=== PATIENT | male | born 1970 | race African-American/Black ===

== ENCOUNTER 2019-09-05 05:13 | Emergency (ER) | payer BC, OTHER ==
--- NOTE | 2019-09-05 06:19 | ER Document Report ---
ED General - General Chief Complaint: Eye Pain Stated Complaint: LEFT EYE PAIN Time Seen by Provider: 09/05/19 06:11 Mode of Arrival: Ambulatory Information source: Patient TRAVEL OUTSIDE OF THE [place] IN LAST 30 DAYS: No - HPI Onset: Other - 2 weeks Onset/Duration: Gradual, Persistent, Worse Quality of pain: Burning, Throbbing Severity: Moderate Pain Level: 2 Context: Patient is a 48-year-old male presenting to the emergency department chief complaint of decreased vision to the left eye and watering. The patient states it started about 2 weeks ago without provocation patient states he went to a local urgent care clinic he states that just a physical exam without staining or any other mechanism he was placed on 2 eyedrop medications. He further states that when symptoms did not resolve he was placed on oral steroids and told that if symptoms did not resolve that he needed to follow-up with an eye doctor. Patient presents to the emergency department this morning for evaluation. Associated symptoms: Allergy/hay fever Exacerbated by: Other - bright light Relieved by: Denies Similar symptoms previously: Yes Recently seen / treated by doctor: Yes - Related Data Allergies/Adverse Reactions: No Known Allergies Allergy (Unverified 09/05/19 05:23) Home Medications: EYE ANTIBIOTICS Past Medical History - General Information source: Patient - Social History Smoking Status: Never Smoker Chew tobacco use (# tins/day): No Frequency of alcohol use: None Drug Abuse: None Family History: None Patient has suicidal ideation: No Patient has homicidal ideation: No - Medical History Medical History: Negative Surgical Hx: Negative Review of Systems - Review of Systems Constitutional: No symptoms reported EENT: See HPI, Eye pain, Eye discharge, Blurred vision, Tearing Cardiovascular: No symptoms reported Respiratory: No symptoms reported Gastrointestinal: No symptoms reported Genitourinary: No symptoms reported Male Genitourinary: No symptoms reported Musculoskeletal: No symptoms reported Skin: No symptoms reported Hematologic/Lymphatic: No symptoms reported Neurological/Psychological: No symptoms reported Physical Exam - Vital signs Vitals: Temp Pulse BP Pulse Ox 97.3 F 64 181/100 H 99 09/05/19 05:22 09/05/19 05:22 09/05/19 05:22 09/05/19 05:22 - Notes Notes: PHYSICAL EXAMINATION: GENERAL: Well-appearing, well-nourished and in no acute distress. HEAD: Atraumatic, normocephalic. EYES: Pupils equal round and reactive to light, extraocular movements intact, left eye is markedly injected and somewhat cloudy sensitive to light. ENT: nares patent, oropharynx clear without exudates. Moist mucous membranes. NECK: Normal range of motion, supple without lymphadenopathy, no appreciable JVD LUNGS: Lungs demonstrate no respiratory distress ABDOMEN: Nondistended EXTREMITIES: Active full range of motion, no pitting or edema. No cyanosis NEUROLOGICAL: No focal neurological deficits. Moves all extremities spontaneously and on command. SKIN: Warm, Dry, and intact. Normal turgor, no rashes or lesions noted. - HEENT Visual acuity- Right eye: 20/40 Visual acuity- Left eye: unable Visual acuity- Both eyes: 20/40 Corrective lenses worn: No Course - Re-evaluation Re-evalutation: 09/05/19 06:57 Eye exam was performed by me. Patient is recommended to follow-up with ophthalmology today patient given instructions. - Vital Signs Vital signs: Temp Pulse Resp BP Pulse Ox 97.8 F 64 146/96 H 100 09/05/19 06:27 09/05/19 06:27 09/05/19 06:27 09/05/19 06:27 Procedures - Eye Procedure Left Time completed: 06:55 Alcaine Drops Administered: Yes Fluorescein applied: Left Slit lamp used: No Notes: 09/05/19 06:56 I was anesthetized with tetracaine and stained with fluorescein and examined under the [place] lamp there was 1 very small particle that was identified on initial examination but never seen again I did clear the lower lid margin with a Q-tip and once again flushed the eye. Patient is recommended to follow-up with ophthalmology today. Discharge - Discharge Clinical Impression: Pain, eye, left Condition: Stable Disposition: HOME, SELF-CARE Additional Instructions: Follow-up with the eye doctor this morning. Referrals: JESSICA COREA DO [ACTIVE STAFF] - Follow up as needed
[2019-09-05] MEDS ORDERED: TETRACAINE HCL 0.5% OPH SOLN 4 ML OD ONE (06:23)
[2019-09-05 06:29] VITALS: BP 146/96
== END 2019-09-05 07:01 | disposition home or self-care (01) ==
LOC: ER 05:13
DX: H57.12 Ocular pain, left eye (principal); H53.142 Visual discomfort, left eye; J30.1 Allergic rhinitis due to pollen; H53.8 Other visual disturbances; H57.89 Other specified disorders of eye and adnexa
CPT/HCPCS: 99283; J3490